=== PATIENT | female | born 1985 | race African-American/Black ===

== ENCOUNTER 2016-10-11 09:26 | Emergency (ER) | payer OTHER ==
[2016-10-11 10:13] LABS: MEAN CORPUSCULAR HEMOGLOBIN 31.2 pg (27.0-33.0); MEAN CORPUSCULAR HGB CONC 31.7 g/dl (32.0-36.5); MEAN CORPUSCULAR VOLUME 98.5 fl (80.0-96.0); RED CELL DISTRIBUTION WIDTH 13.9 % (11.5-14.5); WHITE BLOOD COUNT 8.3 K/mm3 (4.0-10.0)
[2016-10-11 10:29] LABS: CONTROL LINE HCG INT CTR LINE PRESENT
--- NOTE | 2016-10-11 10:48 | EDDOCDS ---
Physician Documentation [facility] Name: Claudia Barnes Age: 31 yrs Sex: Female : 1985 Arrival Date: 10/11/2016 Time: 09:26 Bed I7 / 29 Private [place] [facility] [place]: 10/11/16 10:38 Discharged to Home/Self Care. Impression: Abnormal uterine and vaginal bleeding, unspecified, Urinary tract infection, site not specified. - Condition is Stable. - Discharge Instructions: Abnormal Uterine Bleeding, Uterine Bleeding, Dysfunctional, Abnormal Uterine Bleeding, [id number], Urinary Tract Infection. - Prescriptions for Cipro 500 mg Oral Tablet - take 1 tablet by ORAL route every 12 hours; 14 tablet. - Medication Reconciliation, Local Pharmacy Hours form. - [place] [facility] [place]; When: 2 - 3 days. - Problem is new. - Symptoms are unchanged. - Notes: return for severe abdominal pain, vaginal bleeding saturading more than one pad per hour, worsening symptoms or other concerns Historical: - Allergies: no known allergies; - Home Meds: 1. none - PMHx: none; - PSHx: Section x3; - Social history: Smoking status: Patient uses tobacco products, light tobacco smoker. No barriers to communication noted, The patient speaks fluent Setswana, Speaks appropriately for age. - Family history: Not pertinent. - : The pt / caregiver states he / she is not on anticoagulants. Home medication list is obtained from the patient. - Exposure Risk Screening:: None identified. Vital Signs: 10/11 09:28 BP 117 / 73; Pulse 82; Resp 18; Temp 98.9(O); Pulse Ox 100% ; Weight 57.61 kg / 127.01 jrd lbs (R); Height 5 ft. 2 in. (157.48 cm) (R); Pain 8/10; 10:46 BP 115 / 76; Pulse 80; Resp 18; Temp 97.4; Pulse Ox 98% on R/A; Pain 2/10; dls 09:28 Body Mass Index 23.23 (57.61 kg, 157.48 cm) jrd MDM: 09:36 Urine Culture Ordered. EDMS 09:36 CBC Ordered. EDMS 09:37 HCG,Serum Qualitative Ordered. EDMS 09:37 Type & Screen Ordered. EDMS 09:37 UA Ordered. EDMS 09:44 Set up pelvic ordered. sd1 09:46 GC & Chlamydia Amplification Ordered. EDMS 09:46 Wet Prep Ordered. EDMS 10:33 CBC Reviewed. sd1 10:33 UA Reviewed. sd1 10:33 HCG,Serum Qualitative Reviewed. sd1 10:33 Wet Prep Reviewed. sd1 10:33 Financial registration complete. lg 10:44 [facility] Payment Agreement was scanned into [employer] and attached to record. lg Signatures: Dispatcher [employer] EDMS Caroline Perry MD MD sd1 René Alexis,RN RN Antionette Weiss RN RN dls Cornelius Hogan, Reg Reg lg Es Braga RN RN hs1 The chart was reviewed and I authenticate all verbal orders and agree with the evaluation and treatment provided.Attachments: 10:44 [facility] Payment Agreement lg MTDD
--- NOTE | 2016-10-11 10:48 | EDDOCDS ---
Nurse's Notes [facility] Name: Claudia Barnes Age: 31 yrs Sex: Female : 1985 Arrival Date: 10/11/2016 Time: 09:26 Bed I7 / 29 Private MD: KAROLYN Frias Diagnosis: Abnormal uterine and vaginal bleeding, unspecified;Urinary tract infection, site not specified Presentation: 10/11 09:30 Presenting complaint: Patient states: patient unsure if she is however she is hs1 bleeding through a tampon - Patient reports spotting through a super tampon in less than 4 hours. Unsure if regular menses or not as patient has never bled through a tampon before. Patient also concerned for UTI symptoms. Risk factors: The patient reports no loss of conciousness prior to arrival. This patient has not had a hysterectomy. This patient has not begun menopause. Adult Sepsis Screening: The patient does not have new or worsening altered mentation. Patient's respiratory rate is less than 22. Systolic blood pressure is greater than 100. Patient has a qSOFA score of 0- Negative Sepsis Screen. Suicide/Homicide risk assessment- the patient denies having any suicidal and/or homicidal ideations and does not present with any other emotional, behavioral or mental health complaints. Status: The patient is a dependent. Transition of care: patient was not received from another setting of care. 09:30 Acuity: ASHLEY Level 3 hs1 09:30 Method Of Arrival: Walkin/Carried/Asstd hs1 Triage Assessment: 09:34 General: Appears in no apparent distress, comfortable, Behavior is appropriate for age, hs1 cooperative, pleasant. Pain: Location: abdomen Pain currently is 5 out of 10 on a pain scale. HIV screening NA for this visit Offered previously. Respiratory: No deficits noted. : Reports vaginal bleeding that is bright red heavy flow. Derm: No deficits noted. Historical: - Allergies: no known allergies; - Home Meds: 1. none - PMHx: none; - PSHx: Section x3; - Social history: Smoking status: Patient uses tobacco products, light tobacco smoker. No barriers to communication noted, The patient speaks fluent Wolof, Speaks appropriately for age. - Family history: Not pertinent. - : The pt / caregiver states he / she is not on anticoagulants. Home medication list is obtained from the patient. - Exposure Risk Screening:: None identified. Screenin:02 Screening information is obtained from the patient. Fall risk: No risks identified. jmk Assistance ADL's: requires no assistance with activities of daily living. Abuse/DV Screen: The patient / caregiver reports he/she is: not in a situation that causes fear, pain or injury. Nutritional screening: No deficits noted. Advance Directives: Currently, there is no health care proxy. There is no active DNR order. There is no living will. There is no Power of Retirement Specialist. Advance directive information has not previously been placed in an [facility] medical record. home support is adequate. Assessment: 10:02 General: Appears in no apparent distress. Cardiovascular: No deficits noted. Capillary jmk refill < 3 seconds. Respiratory: No deficits noted. GI: Abdomen is flat, non- distended Bowel sounds present X 4 quads. Abd is soft and non tender X 4 quads. :. Vital Signs: 09:28 BP 117 / 73; Pulse 82; Resp 18; Temp 98.9(O); Pulse Ox 100% ; Weight 57.61 kg (R); jrd Height 5 ft. 2 in. (157.48 cm) (R); Pain 8/10; 10:46 BP 115 / 76; Pulse 80; Resp 18; Temp 97.4; Pulse Ox 98% on R/A; Pain 2/10; dls 09:28 Body Mass Index 23.23 (57.61 kg, 157.48 cm) [facility] Vitals: 09:28 Log In Time: October 11, 2016 at 09:25. [facility] ED Course: 09:28 Patient visited by Young Godinez PCA. jrd 09:28 [facility] [place] Private Physician. jrd 09:28 Patient moved to Waiting jrd 09:31 Patient visited by Young Godinez PCA. jrd 09:31 Patient moved to Pre RCE jrd 09:33 Triage Initiated hs1 09:36 Patient moved to I7 hs1 09:37 Caroline Perry MD is Attending Physician. sd1 09:37 Patient visited by Caroline Perry MD. sd1 09:56 Urine Culture Sent. beulahk 09:56 UA Sent. jmk 09:56 Type & Screen Sent. beulahk 09:56 HCG,Serum Qualitative Sent. jmk 09:56 CBC Sent. beulahk 10:02 The patient / caregiver is instructed regarding the plan of care and ED course. beulahk 10:02 GC & Chlamydia Amplification Sent. beulahk 10:02 Wet Prep Sent. beulahk 10:03 Assist provider with pelvic exam: Specimens sent to lab. Performed by Caroline Perry MD Patient tolerated well. 10:04 Patient visited by René Alexis RN. ed 10:38 [facility] [place]erral Physician. sd1 10:44 [facility] Payment Agreement was scanned into [employer] and attached to record. lg 10:48 No IV's were initiated during this patient's visit. dls Order Results: Lab Order: CBC; SPEC'M 10/11/16 09:41 Test: WHITE BLOOD COUNT; Value: 8.3; Range: 4.0-10.0; Units: K/mm3; Status: F Test: RED BLOOD COUNT; Value: 4.14; Range: 4.00-5.40; Units: M/mm3; Status: F Test: HEMOGLOBIN; Value: 12.9; Range: 12.0-16.0; Units: g/dl; Status: F Test: HEMATOCRIT; Value: 40.8; Range: 36.0-47.0; Units: %; Status: F Test: MEAN CORPUSCULAR VOLUME; Value: 98.5; Range: 80.0-96.0; Abnormal: Above high normal; Units: fl; Status: F Test: MEAN CORPUSCULAR HEMOGLOBIN; Value: 31.2; Range: 27.0-33.0; Units: pg; Status: F Test: MEAN CORPUSCULAR HGB CONC; Value: 31.7; Range: 32.0-36.5; Abnormal: Below low normal; Units: g/dl; Status: F Test: RED CELL DISTRIBUTION WIDTH; Value: 13.9; Range: 11.5-14.5; Units: %; Status: F Test: PLATELET COUNT, AUTOMATED; Value: 296; Range: 150-450; Units: k/mm3; Status: F Lab Order: HCG,Serum Qualitative; SPEC'M 10/11/16 09:41 Test: HCG, SERUM QUALITATIVE; Value: NEGATIVE; Range: NEGATIVE; Status: F Lab Order: UA; SPEC'M 10/11/16 09:41 Test: APPEARANCE, URINE; Value: CLOUDY; Range: CLEAR; Abnormal: Above high normal; Status: F Test: COLOR, URINE; Value: YELLOW; Range: YELLOW; Status: F Test: PH,URINE; Value: 5.0; Range: 5.0-9.0; Units: UNITS; Status: F Test: SPECIFIC GRAVITY URINE AUTO; Value: 1.021; Range: 1.002-1.035; Status: F Test: PROTEIN, URINE AUTO; Value: 2+; Range: NEGATIVE; Abnormal: Above high normal; Units: mg/dL; Status: F Test: GLUCOSE, URINE (UA) AUTO; Value: NEGATIVE; Range: NEGATIVE; Units: mg/dL; Status: F Test: KETONE, URINE AUTO; Value: NEGATIVE; Range: NEGATIVE; Units: mg/dL; Status: F Test: UROBILINOGEN, URINE AUTO; Value: 2.0; Range: 0.0-2.0; Abnormal: Above high normal; Units: mg/dL; Status: F Test: BILIRUBIN, URINE AUTO; Value: NEGATIVE; Range: NEGATIVE; Status: F Test: NITRITE, URINE AUTO; Value: NEGATIVE; Range: NEGATIVE; Status: F Test: LEUKOCYTE ESTERASE, URINE AUTO; Value: 3+; Range: NEGATIVE; Abnormal: Above high normal; Status: F Test: BLOOD, URINE BLOOD; Value: 3+; Range: NEGATIVE; Abnormal: Above high normal; Status: F Test: WBC, URINE AUTO; Value: TNTC; Range: 0-3; Abnormal: Above high normal; Units: /HPF; Status: F Test: RBC, URINE AUTO; Value: TNTC; Range: 0-3; Abnormal: Above high normal; Units: /HPF; Status: F Test: BACTERIA, URINE AUTO; Value: 3+; Range: NEGATIVE; Abnormal: Above high normal; Status: F Test: SQUAMOUS EPITHELIAL CELL UR AU; Value: 4; Range: 0-6; Units: /HPF; Status: F Test: MUCUS, URINE; Value: LARGE; Range: NEGATIVE; Status: F Test: HYALINE CAST, URINE AUTO; Value: 0; Range: 0-1; Units: /LPF; Status: F Test: AMORPHOUS SEDIMENT; Value: SMALL; Range: NEGATIVE; Abnormal: Above high normal; Status: F Lab Order: Wet Prep; SPEC'M 10/11/16 09:53 Test: WET PREP; Value: WET PREP RESULT; Status: F Test: WET PREP; Value: MANY EPITHELIAL CELLS PRESENT; Status: F Test: WET PREP; Value: MANY RBC; Status: F Outcome: 10:38 Discharge ordered by Provider. sd1 10:47 Discharge Assessment: Patient awake, alert and oriented x 3. No cognitive and/or dls functional deficits noted. Patient verbalized understanding of disposition instructions. patient administered narcotics - no. The following High Risk Discharge criteria are identified: None. Discharged to home ambulatory, with family. Condition: stable. Discharge instructions given to patient, Instructed on discharge instructions, follow up and referral plans. medication usage, Demonstrated understanding of instructions, medications, Pt was receptive of discharge instructions/ teaching. Prescriptions given X 2. No special radiology studies were completed. Property sent home with patient. 10:48 Patient left the ED. dls Signatures: Caroline Perry MD MD sd1 René Alexis,RN RN Antionette Weiss RN RN Cornelius Louise, Tony Reg lg Es Braga RN RN hs1 Young Godinez, DOMINIC HELP DESK TECHNICIAN jrd MTDD
--- NOTE | 2016-10-13 11:48 | EDDOCDS ---
Physician Documentation [facility] Name: Claudia Barnes Age: 31 yrs Sex: Female : 1985 Arrival Date: 10/11/2016 Time: 09:26 Bed I7 / 29 Private MD: [place] [facility] [place]position: 10/11/16 10:38 Discharged to Home/Self Care. Impression: Abnormal uterine and vaginal bleeding, unspecified, Urinary tract infection, site not specified. - Condition is Stable. - Discharge Instructions: Abnormal Uterine Bleeding, Uterine Bleeding, Dysfunctional, Abnormal Uterine Bleeding, [id number], Urinary Tract Infection. - Prescriptions for Cipro 500 mg Oral Tablet - take 1 tablet by ORAL route every 12 hours; 14 tablet. - Medication Reconciliation, Local Pharmacy Hours form. - [place] [facility] [place]; When: 2 - 3 days. - Problem is new. - Symptoms are unchanged. - Notes: return for severe abdominal pain, vaginal bleeding saturading more than one pad per hour, worsening symptoms or other concerns Historical: - Allergies: no known allergies; - Home Meds: 1. none - PMHx: none; - PSHx: Section x3; - Social history: Smoking status: Patient uses tobacco products, light tobacco smoker. No barriers to communication noted, The patient speaks fluent Divehi, Speaks appropriately for age. - Family history: Not pertinent. - : The pt / caregiver states he / she is not on anticoagulants. Home medication list is obtained from the patient. - Exposure Risk Screening:: None identified. Vital Signs: 10/11 09:28 BP 117 / 73; Pulse 82; Resp 18; Temp 98.9(O); Pulse Ox 100% ; Weight 57.61 kg / 127.01 jrd lbs (R); Height 5 ft. 2 in. (157.48 cm) (R); Pain 8/10; 10:46 BP 115 / 76; Pulse 80; Resp 18; Temp 97.4; Pulse Ox 98% on R/A; Pain 2/10; dls 09:28 Body Mass Index 23.23 (57.61 kg, 157.48 cm) jrd MDM: 09:36 Urine Culture Ordered. EDMS 09:36 CBC Ordered. EDMS 09:37 HCG,Serum Qualitative Ordered. EDMS 09:37 Type & Screen Ordered. EDMS 09:37 UA Ordered. EDMS 09:44 Set up pelvic ordered. sd1 09:46 GC & Chlamydia Amplification Ordered. EDMS 09:46 Wet Prep Ordered. EDMS 10:33 CBC Reviewed. sd1 10:33 UA Reviewed. sd1 10:33 HCG,Serum Qualitative Reviewed. sd1 10:33 Wet Prep Reviewed. sd1 10:33 Financial registration complete. lg 10:44 [facility] Payment Agreement was scanned into [employer] and attached to record. lg 14:21 T-Sheet-- Draft Copy was scanned into [employer] and attached to record. gb Signatures: Dispatcher [employer] EDCaroline Small MD MD sd1 René Alexis,RN RN Antionette Weiss RN RN Nayely Ortega, Reg Reg gb Cornelius Hogan, Reg Reg lg Es Braga, RN RN hs1 The chart was reviewed and I authenticate all verbal orders and agree with the evaluation and treatment provided.Attachments: 10:44 [facility] Payment Agreement lg 14:21 T-Sheet-- Draft Copy gb Chart Complete MTDD
--- NOTE | 2016-10-13 11:48 | EDDOCDS ---
Nurse's Notes [facility] Name: Claudia Barnes Age: 31 yrs Sex: Female : 1985 Arrival Date: 10/11/2016 Time: 09:26 Bed I7 / 29 Private MD: KAROLYN Frias Diagnosis: Abnormal uterine and vaginal bleeding, unspecified;Urinary tract infection, site not specified Presentation: 10/11 09:30 Presenting complaint: Patient states: patient unsure if she is however she is hs1 bleeding through a tampon - Patient reports spotting through a super tampon in less than 4 hours. Unsure if regular menses or not as patient has never bled through a tampon before. Patient also concerned for UTI symptoms. Risk factors: The patient reports no loss of conciousness prior to arrival. This patient has not had a hysterectomy. This patient has not begun menopause. Adult Sepsis Screening: The patient does not have new or worsening altered mentation. Patient's respiratory rate is less than 22. Systolic blood pressure is greater than 100. Patient has a qSOFA score of 0- Negative Sepsis Screen. Suicide/Homicide risk assessment- the patient denies having any suicidal and/or homicidal ideations and does not present with any other emotional, behavioral or mental health complaints. Status: The patient is a dependent. Transition of care: patient was not received from another setting of care. 09:30 Acuity: ASHLEY Level 3 hs1 09:30 Method Of Arrival: Walkin/Carried/Asstd hs1 Triage Assessment: 09:34 General: Appears in no apparent distress, comfortable, Behavior is appropriate for age, hs1 cooperative, pleasant. Pain: Location: abdomen Pain currently is 5 out of 10 on a pain scale. HIV screening NA for this visit Offered previously. Respiratory: No deficits noted. : Reports vaginal bleeding that is bright red heavy flow. Derm: No deficits noted. Historical: - Allergies: no known allergies; - Home Meds: 1. none - PMHx: none; - PSHx: Section x3; - Social history: Smoking status: Patient uses tobacco products, light tobacco smoker. No barriers to communication noted, The patient speaks fluent Syriac, Speaks appropriately for age. - Family history: Not pertinent. - : The pt / caregiver states he / she is not on anticoagulants. Home medication list is obtained from the patient. - Exposure Risk Screening:: None identified. Screenin:02 Screening information is obtained from the patient. Fall risk: No risks identified. jmk Assistance ADL's: requires no assistance with activities of daily living. Abuse/DV Screen: The patient / caregiver reports he/she is: not in a situation that causes fear, pain or injury. Nutritional screening: No deficits noted. Advance Directives: Currently, there is no health care proxy. There is no active DNR order. There is no living will. There is no Power of Director Of Midwifery/Staff Midwife. Advance directive information has not previously been placed in an [facility] medical record. home support is adequate. Assessment: 10:02 General: Appears in no apparent distress. Cardiovascular: No deficits noted. Capillary jmk refill < 3 seconds. Respiratory: No deficits noted. GI: Abdomen is flat, non- distended Bowel sounds present X 4 quads. Abd is soft and non tender X 4 quads. :. Vital Signs: 09:28 BP 117 / 73; Pulse 82; Resp 18; Temp 98.9(O); Pulse Ox 100% ; Weight 57.61 kg (R); jrd Height 5 ft. 2 in. (157.48 cm) (R); Pain 8/10; 10:46 BP 115 / 76; Pulse 80; Resp 18; Temp 97.4; Pulse Ox 98% on R/A; Pain 2/10; dls 09:28 Body Mass Index 23.23 (57.61 kg, 157.48 cm) [facility] Vitals: 09:28 Log In Time: October 11, 2016 at 09:25. [facility] ED Course: 09:28 Patient visited by Young Godinez PCA. jrd 09:28 Altagracia [facility] is Private Physician. jrd 09:28 Patient moved to Waiting jrd 09:31 Patient visited by Young Godinez PCA. jrd 09:31 Patient moved to Pre RCE jrd 09:33 Triage Initiated hs1 09:36 Patient moved to I7 hs1 09:37 Caroline Perry MD is Attending Physician. sd1 09:37 Patient visited by Caroline Perry MD. sd1 09:56 Urine Culture Sent. beulahk 09:56 UA Sent. beulahk 09:56 Type & Screen Sent. beulahk 09:56 HCG,Serum Qualitative Sent. jmk 09:56 CBC Sent. jmk 10:02 The patient / caregiver is instructed regarding the plan of care and ED course. beulahk 10:02 GC & Chlamydia Amplification Sent. beulahk 10:02 Wet Prep Sent. beulahk 10:03 Assist provider with pelvic exam: Specimens sent to lab. Performed by Caroline Perry MD Patient tolerated well. 10:04 Patient visited by René Alexis RN. ed 10:38 Altagracia [facility] is Referral Physician. sd1 10:44 [facility] [place] Agreement was scanned into [employer] and attached to record. lg 10:48 No IV's were initiated during this patient's visit. dls 14:21 T-Sheet-- Draft Copy was scanned into [employer] and attached to record. gb Order Results: Lab Order: CBC; SPEC'M 10/11/16 09:41 Test: WHITE BLOOD COUNT; Value: 8.3; Range: 4.0-10.0; Units: K/mm3; Status: F Test: RED BLOOD COUNT; Value: 4.14; Range: 4.00-5.40; Units: M/mm3; Status: F Test: HEMOGLOBIN; Value: 12.9; Range: 12.0-16.0; Units: g/dl; Status: F Test: HEMATOCRIT; Value: 40.8; Range: 36.0-47.0; Units: %; Status: F Test: MEAN CORPUSCULAR VOLUME; Value: 98.5; Range: 80.0-96.0; Abnormal: Above high normal; Units: fl; Status: F Test: MEAN CORPUSCULAR HEMOGLOBIN; Value: 31.2; Range: 27.0-33.0; Units: pg; Status: F Test: MEAN CORPUSCULAR HGB CONC; Value: 31.7; Range: 32.0-36.5; Abnormal: Below low normal; Units: g/dl; Status: F Test: RED CELL DISTRIBUTION WIDTH; Value: 13.9; Range: 11.5-14.5; Units: %; Status: F Test: PLATELET COUNT, AUTOMATED; Value: 296; Range: 150-450; Units: k/mm3; Status: F Lab Order: HCG,Serum Qualitative; SPEC'M 10/11/16:41 Test: HCG, SERUM QUALITATIVE; Value: NEGATIVE; Range: NEGATIVE; Status: F Lab Order: Type & Screen; SPECM 10/11/16 Test: BLOOD TYPE; Value: O POS; Status: F Test: AB SCREEN (INDIRECT KSIP)GEL; Value: NEGATIVE; Status: F Lab Order: UA; SPEC'M 10/11/16: Test: APPEARANCE, URINE; Value: CLOUDY; Range: CLEAR; Abnormal: Above high normal; Status: F Test: COLOR, URINE; Value: YELLOW; Range: YELLOW; Status: F Test: PH,URINE; Value: 5.0; Range: 5.0-9.0; Units: UNITS; Status: F Test: SPECIFIC GRAVITY URINE AUTO; Value: 1.021; Range: 1.002-1.035; Status: F Test: PROTEIN, URINE AUTO; Value: 2+; Range: NEGATIVE; Abnormal: Above high normal; Units: mg/dL; Status: F Test: GLUCOSE, URINE (UA) AUTO; Value: NEGATIVE; Range: NEGATIVE; Units: mg/dL; Status: F Test: KETONE, URINE AUTO; Value: NEGATIVE; Range: NEGATIVE; Units: mg/dL; Status: F Test: UROBILINOGEN, URINE AUTO; Value: 2.0; Range: 0.0-2.0; Abnormal: Above high normal; Units: mg/dL; Status: F Test: BILIRUBIN, URINE AUTO; Value: NEGATIVE; Range: NEGATIVE; Status: F Test: NITRITE, URINE AUTO; Value: NEGATIVE; Range: NEGATIVE; Status: F Test: LEUKOCYTE ESTERASE, URINE AUTO; Value: 3+; Range: NEGATIVE; Abnormal: Above high normal; Status: F Test: BLOOD, URINE BLOOD; Value: 3+; Range: NEGATIVE; Abnormal: Above high normal; Status: F Test: WBC, URINE AUTO; Value: TNTC; Range: 0-3; Abnormal: Above high normal; Units: /HPF; Status: F Test: RBC, URINE AUTO; Value: TNTC; Range: 0-3; Abnormal: Above high normal; Units: /HPF; Status: F Test: BACTERIA, URINE AUTO; Value: 3+; Range: NEGATIVE; Abnormal: Above high normal; Status: F Test: SQUAMOUS EPITHELIAL CELL UR AU; Value: 4; Range: 0-6; Units: /HPF; Status: F Test: MUCUS, URINE; Value: LARGE; Range: NEGATIVE; Status: F Test: HYALINE CAST, URINE AUTO; Value: 0; Range: 0-1; Units: /LPF; Status: F Test: AMORPHOUS SEDIMENT; Value: SMALL; Range: NEGATIVE; Abnormal: Above high normal; Status: F Lab Order: Urine Culture; SPEC'M 10/11/16 09:41 Test: URINE CULTURE; Value: <EXTERNAL COMMENT eCWMed> FULL REPORT IN LAB NOTES (eCW and Medent).; Status: F Test: URINE CULTURE; Value: ORGANISM 1: ESCHERICHIA COLI; Status: F Test: URINE CULTURE; Value: ESCHERICHIA COLI; Status: F Test: URINE CULTURE; Value: COLONY COUNT CFU/ml >100,000; Status: F Test: URINE CULTURE; Value: GRAM NEG SENSI - VITEK 80; Status: F Test: URINE CULTURE; Value: Method: VIT2; Status: F Test: URINE CULTURE; Value: EXTD BRD SPCTRM BETA LACTAMASE -; Status: F Test: URINE CULTURE; Value: TRIMETHOPRIM/SULFAMETHOXAZOLE >=320 R; Status: F Test: URINE CULTURE; Value: AMPICILLIN >=32 R; Status: F Test: URINE CULTURE; Value: GENTAMICIN <=1 S; Status: F Test: URINE CULTURE; Value: NITROFURANTOIN <=16 S; Status: F Test: URINE CULTURE; Value: CEFAZOLIN <=4 S; Status: F Test: URINE CULTURE; Value: LEVOFLOXACIN <=0.12 S; Status: F Test: URINE CULTURE; Value: TOBRAMYCIN <=1 S; Status: F Test: URINE CULTURE; Value: CEFTRIAXONE <=1 S; Status: F Test: URINE CULTURE; Value: CEFTAZIDIME <=1 S; Status: F Test: URINE CULTURE; Value: AMPICILLIN/SULBACTAM 16 I; Status: F Test: URINE CULTURE; Value: PIPERACILLIN/TAZOBACTAM <=4 S; Status: F Test: URINE CULTURE; Value: AZTREONAM <=1 S; Status: F Test: URINE CULTURE; Value: ERTAPENEM <=0.5 S; Status: F Test: URINE CULTURE; Value: MEROPENEM <=0.25 S; Status: F Test: URINE CULTURE; Value: TIGECYCLINE <=0.5 S; Status: F Test: URINE CULTURE; Value: CEFEPIME <=1 S; Status: F Lab Order: GC & Chlamydia Amplification; SPEC'M 10/11/16 09:53 Test: CHLAMYDIA DNA AMPLIFICATION; Value: NEGATIVE; Range: NEGATIVE; Status: F Test: GC DNA AMPLIFICATION; Value: NEGATIVE; Range: NEGATIVE; Status: F Lab Order: Wet Prep; SPEC'M 10/11/16 09:53 Test: WET PREP; Value: WET PREP RESULT; Status: F Test: WET PREP; Value: MANY EPITHELIAL CELLS PRESENT; Status: F Test: WET PREP; Value: MANY RBC; Status: F Outcome: 10:38 Discharge ordered by Provider. sd1 10:47 Discharge Assessment: Patient awake, alert and oriented x 3. No cognitive and/or dls functional deficits noted. Patient verbalized understanding of disposition instructions. patient administered narcotics - no. The following High Risk Discharge criteria are identified: None. Discharged to home ambulatory, with family. Condition: stable. Discharge instructions given to patient, Instructed on discharge instructions, follow up and referral plans. medication usage, Demonstrated understanding of instructions, medications, Pt was receptive of discharge instructions/ teaching. Prescriptions given X 2. No special radiology studies were completed. Property sent home with patient. 10:48 Patient left the ED. dls Signatures: Caroline Perry MD MD sd1 René Alexis,RN RN Antionette Weiss RN RN dls Nayely Matute, Reg Reg gb Cornelius Hogan, Reg Reg lg Es Braga RN RN hs1 Young Godinez, DOMINIC INFANT CAREGIVER jrd Chart Complete MTDD
--- NOTE | 2016-10-13 11:48 | EDDOCDS ---
Physician Documentation [facility] Name: Claudia Barnes Age: 31 yrs Sex: Female : 1985 Arrival Date: 10/11/2016 Time: 09:26 Bed I7 / 29 Private MD: Altagracia [facility] Disposition: 10/11/16 10:38 Discharged to Home/Self Care. Impression: Abnormal uterine and vaginal bleeding, unspecified, Urinary tract infection, site not specified. - Condition is Stable. - Discharge Instructions: Abnormal Uterine Bleeding, Uterine Bleeding, Dysfunctional, Abnormal Uterine Bleeding, [id number], Urinary Tract Infection. - Prescriptions for Cipro 500 mg Oral Tablet - take 1 tablet by ORAL route every 12 hours; 14 tablet. - Medication Reconciliation, Local Pharmacy Hours form. - Follow up: [facility] Altagracia; When: 2 - 3 days. - Problem is new. - Symptoms are unchanged. - Notes: return for severe abdominal pain, vaginal bleeding saturading more than one pad per hour, worsening symptoms or other concerns Historical: - Allergies: no known allergies; - Home Meds: 1. none - PMHx: none; - PSHx: Section x3; - Social history: Smoking status: Patient uses tobacco products, light tobacco smoker. No barriers to communication noted, The patient speaks fluent Khmer, Speaks appropriately for age. - Family history: Not pertinent. - : The pt / caregiver states he / she is not on anticoagulants. Home medication list is obtained from the patient. - Exposure Risk Screening:: None identified. Vital Signs: 10/11 09:28 BP 117 / 73; Pulse 82; Resp 18; Temp 98.9(O); Pulse Ox 100% ; Weight 57.61 kg / 127.01 jrd lbs (R); Height 5 ft. 2 in. (157.48 cm) (R); Pain 8/10; 10:46 BP 115 / 76; Pulse 80; Resp 18; Temp 97.4; Pulse Ox 98% on R/A; Pain 2/10; dls 09:28 Body Mass Index 23.23 (57.61 kg, 157.48 cm) jrd MDM: 09:36 Urine Culture Ordered. EDMS 09:36 CBC Ordered. EDMS 09:37 HCG,Serum Qualitative Ordered. EDMS 09:37 Type & Screen Ordered. EDMS 09:37 UA Ordered. EDMS 09:44 Set up pelvic ordered. sd1 09:46 GC & Chlamydia Amplification Ordered. EDMS 09:46 Wet Prep Ordered. EDMS 10:33 CBC Reviewed. sd1 10:33 UA Reviewed. sd1 10:33 HCG,Serum Qualitative Reviewed. sd1 10:33 Wet Prep Reviewed. sd1 10:33 Financial registration complete. lg 10:44 [facility] Payment Agreement was scanned into [employer] and attached to record. lg 14:21 T-Sheet-- Draft Copy was scanned into [employer] and attached to record. gb Signatures: Dispatcher [employer] EDCaroline Small MD MD sd1 René Alexis,RN RN Antionette Weiss RN RN Nayely Ortega, Reg Reg gb Cornelius Hogan, Reg Reg lg Es Braga, RN RN hs1 The chart was reviewed and I authenticate all verbal orders and agree with the evaluation and treatment provided.Attachments: 10:44 [facility] Payment Agreement lg 14:21 T-Sheet-- Draft Copy gb Chart Complete MTDD
--- NOTE | 2016-10-13 12:36 | EDDOCDS ---
Nurse's Notes [facility] Name: Claudia Barnes Age: 31 yrs Sex: Female : 1985 Arrival Date: 10/11/2016 Time: 09:26 Bed I7 / 29 Private MD: KAROLYN Frias Diagnosis: Abnormal uterine and vaginal bleeding, unspecified;Urinary tract infection, site not specified Presentation: 10/11 09:30 Presenting complaint: Patient states: patient unsure if she is however she is hs1 bleeding through a tampon - Patient reports spotting through a super tampon in less than 4 hours. Unsure if regular menses or not as patient has never bled through a tampon before. Patient also concerned for UTI symptoms. Risk factors: The patient reports no loss of conciousness prior to arrival. This patient has not had a hysterectomy. This patient has not begun menopause. Adult Sepsis Screening: The patient does not have new or worsening altered mentation. Patient's respiratory rate is less than 22. Systolic blood pressure is greater than 100. Patient has a qSOFA score of 0- Negative Sepsis Screen. Suicide/Homicide risk assessment- the patient denies having any suicidal and/or homicidal ideations and does not present with any other emotional, behavioral or mental health complaints. Status: The patient is a dependent. Transition of care: patient was not received from another setting of care. 09:30 Acuity: ASHLEY Level 3 hs1 09:30 Method Of Arrival: Walkin/Carried/Asstd hs1 Triage Assessment: 09:34 General: Appears in no apparent distress, comfortable, Behavior is appropriate for age, hs1 cooperative, pleasant. Pain: Location: abdomen Pain currently is 5 out of 10 on a pain scale. HIV screening NA for this visit Offered previously. Respiratory: No deficits noted. : Reports vaginal bleeding that is bright red heavy flow. Derm: No deficits noted. Historical: - Allergies: no known allergies; - Home Meds: 1. none - PMHx: none; - PSHx: Section x3; - Social history: Smoking status: Patient uses tobacco products, light tobacco smoker. No barriers to communication noted, The patient speaks fluent Korean, Speaks appropriately for age. - Family history: Not pertinent. - : The pt / caregiver states he / she is not on anticoagulants. Home medication list is obtained from the patient. - Exposure Risk Screening:: None identified. Screenin:02 Screening information is obtained from the patient. Fall risk: No risks identified. jmk Assistance ADL's: requires no assistance with activities of daily living. Abuse/DV Screen: The patient / caregiver reports he/she is: not in a situation that causes fear, pain or injury. Nutritional screening: No deficits noted. Advance Directives: Currently, there is no health care proxy. There is no active DNR order. There is no living will. There is no Power of Client Onboarding Analyst. Advance directive information has not previously been placed in an [facility] medical record. home support is adequate. Assessment: 10:02 General: Appears in no apparent distress. Cardiovascular: No deficits noted. Capillary jmk refill < 3 seconds. Respiratory: No deficits noted. GI: Abdomen is flat, non- distended Bowel sounds present X 4 quads. Abd is soft and non tender X 4 quads. :. Vital Signs: 09:28 BP 117 / 73; Pulse 82; Resp 18; Temp 98.9(O); Pulse Ox 100% ; Weight 57.61 kg (R); jrd Height 5 ft. 2 in. (157.48 cm) (R); Pain 8/10; 10:46 BP 115 / 76; Pulse 80; Resp 18; Temp 97.4; Pulse Ox 98% on R/A; Pain 2/10; dls 09:28 Body Mass Index 23.23 (57.61 kg, 157.48 cm) [facility] Vitals: 09:28 Log In Time: October 11, 2016 at 09:25. [facility] ED Course: 09:28 Patient visited by Young Godinez PCA. jrd 09:28 Altagracia [facility] is Private Physician. jrd 09:28 Patient moved to Waiting jrd 09:31 Patient visited by Young Godinez PCA. jrd 09:31 Patient moved to Pre RCE jrd 09:33 Triage Initiated hs1 09:36 Patient moved to I7 hs1 09:37 Caroline Perry MD is Attending Physician. sd1 09:37 Patient visited by Caroline Perry MD. sd1 09:56 Urine Culture Sent. beulahk 09:56 UA Sent. beulahk 09:56 Type & Screen Sent. beulahk 09:56 HCG,Serum Qualitative Sent. jmk 09:56 CBC Sent. jmk 10:02 The patient / caregiver is instructed regarding the plan of care and ED course. beulahk 10:02 GC & Chlamydia Amplification Sent. beulahk 10:02 Wet Prep Sent. beulahk 10:03 Assist provider with pelvic exam: Specimens sent to lab. Performed by Caroline Perry MD Patient tolerated well. 10:04 Patient visited by René Alexis RN. ed 10:38 Altagracia [facility] is Referral Physician. sd1 10:44 [facility] Payment Agreement was scanned into [employer] and attached to record. lg 10:48 No IV's were initiated during this patient's visit. dls 14:21 T-Sheet-- Draft Copy was scanned into [employer] and attached to record. gb Order Results: Lab Order: CBC; SPEC'M 10/11/16 09:41 Test: WHITE BLOOD COUNT; Value: 8.3; Range: 4.0-10.0; Units: K/mm3; Status: F Test: RED BLOOD COUNT; Value: 4.14; Range: 4.00-5.40; Units: M/mm3; Status: F Test: HEMOGLOBIN; Value: 12.9; Range: 12.0-16.0; Units: g/dl; Status: F Test: HEMATOCRIT; Value: 40.8; Range: 36.0-47.0; Units: %; Status: F Test: MEAN CORPUSCULAR VOLUME; Value: 98.5; Range: 80.0-96.0; Abnormal: Above high normal; Units: fl; Status: F Test: MEAN CORPUSCULAR HEMOGLOBIN; Value: 31.2; Range: 27.0-33.0; Units: pg; Status: F Test: MEAN CORPUSCULAR HGB CONC; Value: 31.7; Range: 32.0-36.5; Abnormal: Below low normal; Units: g/dl; Status: F Test: RED CELL DISTRIBUTION WIDTH; Value: 13.9; Range: 11.5-14.5; Units: %; Status: F Test: PLATELET COUNT, AUTOMATED; Value: 296; Range: 150-450; Units: k/mm3; Status: F Lab Order: HCG,Serum Qualitative; SPEC'M 10/11/16:41 Test: HCG, SERUM QUALITATIVE; Value: NEGATIVE; Range: NEGATIVE; Status: F Lab Order: Type & Screen; SPECM 10/11/16 Test: BLOOD TYPE; Value: O POS; Status: F Test: AB SCREEN (INDIRECT SKIP)GEL; Value: NEGATIVE; Status: F Lab Order: UA; SPEC'M 10/11/16: Test: APPEARANCE, URINE; Value: CLOUDY; Range: CLEAR; Abnormal: Above high normal; Status: F Test: COLOR, URINE; Value: YELLOW; Range: YELLOW; Status: F Test: PH,URINE; Value: 5.0; Range: 5.0-9.0; Units: UNITS; Status: F Test: SPECIFIC GRAVITY URINE AUTO; Value: 1.021; Range: 1.002-1.035; Status: F Test: PROTEIN, URINE AUTO; Value: 2+; Range: NEGATIVE; Abnormal: Above high normal; Units: mg/dL; Status: F Test: GLUCOSE, URINE (UA) AUTO; Value: NEGATIVE; Range: NEGATIVE; Units: mg/dL; Status: F Test: KETONE, URINE AUTO; Value: NEGATIVE; Range: NEGATIVE; Units: mg/dL; Status: F Test: UROBILINOGEN, URINE AUTO; Value: 2.0; Range: 0.0-2.0; Abnormal: Above high normal; Units: mg/dL; Status: F Test: BILIRUBIN, URINE AUTO; Value: NEGATIVE; Range: NEGATIVE; Status: F Test: NITRITE, URINE AUTO; Value: NEGATIVE; Range: NEGATIVE; Status: F Test: LEUKOCYTE ESTERASE, URINE AUTO; Value: 3+; Range: NEGATIVE; Abnormal: Above high normal; Status: F Test: BLOOD, URINE BLOOD; Value: 3+; Range: NEGATIVE; Abnormal: Above high normal; Status: F Test: WBC, URINE AUTO; Value: TNTC; Range: 0-3; Abnormal: Above high normal; Units: /HPF; Status: F Test: RBC, URINE AUTO; Value: TNTC; Range: 0-3; Abnormal: Above high normal; Units: /HPF; Status: F Test: BACTERIA, URINE AUTO; Value: 3+; Range: NEGATIVE; Abnormal: Above high normal; Status: F Test: SQUAMOUS EPITHELIAL CELL UR AU; Value: 4; Range: 0-6; Units: /HPF; Status: F Test: MUCUS, URINE; Value: LARGE; Range: NEGATIVE; Status: F Test: HYALINE CAST, URINE AUTO; Value: 0; Range: 0-1; Units: /LPF; Status: F Test: AMORPHOUS SEDIMENT; Value: SMALL; Range: NEGATIVE; Abnormal: Above high normal; Status: F Lab Order: Urine Culture; SPEC'M 10/11/16 09:41 Test: URINE CULTURE; Value: <EXTERNAL COMMENT eCWMed> FULL REPORT IN LAB NOTES (eCW and Medent).; Status: F Test: URINE CULTURE; Value: ORGANISM 1: ESCHERICHIA COLI; Status: F Test: URINE CULTURE; Value: ESCHERICHIA COLI; Status: F Test: URINE CULTURE; Value: COLONY COUNT CFU/ml >100,000; Status: F Test: URINE CULTURE; Value: GRAM NEG SENSI - VITEK 80; Status: F Test: URINE CULTURE; Value: Method: VIT2; Status: F Test: URINE CULTURE; Value: EXTD BRD SPCTRM BETA LACTAMASE -; Status: F Test: URINE CULTURE; Value: TRIMETHOPRIM/SULFAMETHOXAZOLE >=320 R; Status: F Test: URINE CULTURE; Value: AMPICILLIN >=32 R; Status: F Test: URINE CULTURE; Value: GENTAMICIN <=1 S; Status: F Test: URINE CULTURE; Value: NITROFURANTOIN <=16 S; Status: F Test: URINE CULTURE; Value: CEFAZOLIN <=4 S; Status: F Test: URINE CULTURE; Value: LEVOFLOXACIN <=0.12 S; Status: F Test: URINE CULTURE; Value: TOBRAMYCIN <=1 S; Status: F Test: URINE CULTURE; Value: CEFTRIAXONE <=1 S; Status: F Test: URINE CULTURE; Value: CEFTAZIDIME <=1 S; Status: F Test: URINE CULTURE; Value: AMPICILLIN/SULBACTAM 16 I; Status: F Test: URINE CULTURE; Value: PIPERACILLIN/TAZOBACTAM <=4 S; Status: F Test: URINE CULTURE; Value: AZTREONAM <=1 S; Status: F Test: URINE CULTURE; Value: ERTAPENEM <=0.5 S; Status: F Test: URINE CULTURE; Value: MEROPENEM <=0.25 S; Status: F Test: URINE CULTURE; Value: TIGECYCLINE <=0.5 S; Status: F Test: URINE CULTURE; Value: CEFEPIME <=1 S; Status: F Lab Order: GC & Chlamydia Amplification; SPEC'M 10/11/16 09:53 Test: CHLAMYDIA DNA AMPLIFICATION; Value: NEGATIVE; Range: NEGATIVE; Status: F Test: GC DNA AMPLIFICATION; Value: NEGATIVE; Range: NEGATIVE; Status: F Lab Order: Wet Prep; SPEC'M 10/11/16 09:53 Test: WET PREP; Value: WET PREP RESULT; Status: F Test: WET PREP; Value: MANY EPITHELIAL CELLS PRESENT; Status: F Test: WET PREP; Value: MANY RBC; Status: F Outcome: 10:38 Discharge ordered by Provider. sd1 10:47 Discharge Assessment: Patient awake, alert and oriented x 3. No cognitive and/or dls functional deficits noted. Patient verbalized understanding of disposition instructions. patient administered narcotics - no. The following High Risk Discharge criteria are identified: None. Discharged to home ambulatory, with family. Condition: stable. Discharge instructions given to patient, Instructed on discharge instructions, follow up and referral plans. medication usage, Demonstrated understanding of instructions, medications, Pt was receptive of discharge instructions/ teaching. Prescriptions given X 2. No special radiology studies were completed. Property sent home with patient. 10:48 Patient left the ED. dls Addendum: 10/13/2016 12:33 Narrative: urine culture reviewed,pt treated appropriately. [facility] Signatures: Caroline Perry MD MD sd1 Julieta Corona RN RN [facility] René Alexis RN RN jmk Scott, Debra, RN RN dls Nayely Matute, Reg Reg gb Cornelius Hogan, Reg Reg lg Es Braga RN RN hs1 Young Godinez, DOMINIC DRESSMAKING TEACHER jrd MTDD
--- NOTE | 2016-10-13 12:36 | EDDOCDS ---
Physician Documentation [facility] Name: Claudia Barnes Age: 31 yrs Sex: Female : 1985 Arrival Date: 10/11/2016 Time: 09:26 Bed I7 / 29 Private MD: Altagracia [facility] Disposition: 10/11/16 10:38 Discharged to Home/Self Care. Impression: Abnormal uterine and vaginal bleeding, unspecified, Urinary tract infection, site not specified. - Condition is Stable. - Discharge Instructions: Abnormal Uterine Bleeding, Uterine Bleeding, Dysfunctional, Abnormal Uterine Bleeding, Rmpj-um-Neic, Urinary Tract Infection. - Prescriptions for Cipro 500 mg Oral Tablet - take 1 tablet by ORAL route every 12 hours; 14 tablet. - Medication Reconciliation, Local Pharmacy Hours form. - Follow up: [facility] Altagracia; When: 2 - 3 days. - Problem is new. - Symptoms are unchanged. - Notes: return for severe abdominal pain, vaginal bleeding saturading more than one pad per hour, worsening symptoms or other concerns Historical: - Allergies: no known allergies; - Home Meds: 1. none - PMHx: none; - PSHx: Section x3; - Social history: Smoking status: Patient uses tobacco products, light tobacco smoker. No barriers to communication noted, The patient speaks fluent Hungarian, Speaks appropriately for age. - Family history: Not pertinent. - : The pt / caregiver states he / she is not on anticoagulants. Home medication list is obtained from the patient. - Exposure Risk Screening:: None identified. Vital Signs: 10/11 09:28 BP 117 / 73; Pulse 82; Resp 18; Temp 98.9(O); Pulse Ox 100% ; Weight 57.61 kg / 127.01 jrd lbs (R); Height 5 ft. 2 in. (157.48 cm) (R); Pain 8/10; 10:46 BP 115 / 76; Pulse 80; Resp 18; Temp 97.4; Pulse Ox 98% on R/A; Pain 2/10; dls 09:28 Body Mass Index 23.23 (57.61 kg, 157.48 cm) jrd MDM: 09:36 Urine Culture Ordered. EDMS 09:36 CBC Ordered. EDMS 09:37 HCG,Serum Qualitative Ordered. EDMS 09:37 Type & Screen Ordered. EDMS 09:37 UA Ordered. EDMS 09:44 Set up pelvic ordered. sd1 09:46 GC & Chlamydia Amplification Ordered. EDMS 09:46 Wet Prep Ordered. EDMS 10:33 CBC Reviewed. sd1 10:33 UA Reviewed. sd1 10:33 HCG,Serum Qualitative Reviewed. sd1 10:33 Wet Prep Reviewed. sd1 10:33 Financial registration complete. lg 10:44 [facility] Payment Agreement was scanned into [employer] and attached to record. lg 14:21 T-Sheet-- Draft Copy was scanned into [employer] and attached to record. gb Signatures: Dispatcher [employer] EDCaroline Small MD MD sd1 René Alexis,RN RN Antionette Weiss RN RN Nayely Ortega, Reg Reg gb Cornelius Hogan, Reg Reg lg Es Braga RN RN hs1 The chart was reviewed and I authenticate all verbal orders and agree with the evaluation and treatment provided.Attachments: 10:44 [facility] Payment Agreement lg 14:21 T-Sheet-- Draft Copy gb MTDD
--- NOTE | 2016-10-13 12:36 | EDDOCDS ---
Physician Documentation [facility] Name: Claudia Barnes Age: 31 yrs Sex: Female : 1985 Arrival Date: 10/11/2016 Time: 09:26 Bed I7 / 29 Private MD: Altagracia [facility] Disposition: 10/11/16 10:38 Discharged to Home/Self Care. Impression: Abnormal uterine and vaginal bleeding, unspecified, Urinary tract infection, site not specified. - Condition is Stable. - Discharge Instructions: Abnormal Uterine Bleeding, Uterine Bleeding, Dysfunctional, Abnormal Uterine Bleeding, Zwls-wh-Rils, Urinary Tract Infection. - Prescriptions for Cipro 500 mg Oral Tablet - take 1 tablet by ORAL route every 12 hours; 14 tablet. - Medication Reconciliation, Local Pharmacy Hours form. - Follow up: [facility] Altagracia; When: 2 - 3 days. - Problem is new. - Symptoms are unchanged. - Notes: return for severe abdominal pain, vaginal bleeding saturading more than one pad per hour, worsening symptoms or other concerns Historical: - Allergies: no known allergies; - Home Meds: 1. none - PMHx: none; - PSHx: Section x3; - Social history: Smoking status: Patient uses tobacco products, light tobacco smoker. No barriers to communication noted, The patient speaks fluent Syriac, Speaks appropriately for age. - Family history: Not pertinent. - : The pt / caregiver states he / she is not on anticoagulants. Home medication list is obtained from the patient. - Exposure Risk Screening:: None identified. Vital Signs: 10/11 09:28 BP 117 / 73; Pulse 82; Resp 18; Temp 98.9(O); Pulse Ox 100% ; Weight 57.61 kg / 127.01 jrd lbs (R); Height 5 ft. 2 in. (157.48 cm) (R); Pain 8/10; 10:46 BP 115 / 76; Pulse 80; Resp 18; Temp 97.4; Pulse Ox 98% on R/A; Pain 2/10; dls 09:28 Body Mass Index 23.23 (57.61 kg, 157.48 cm) jrd MDM: 09:36 Urine Culture Ordered. EDMS 09:36 CBC Ordered. EDMS 09:37 HCG,Serum Qualitative Ordered. EDMS 09:37 Type & Screen Ordered. EDMS 09:37 UA Ordered. EDMS 09:44 Set up pelvic ordered. sd1 09:46 GC & Chlamydia Amplification Ordered. EDMS 09:46 Wet Prep Ordered. EDMS 10:33 CBC Reviewed. sd1 10:33 UA Reviewed. sd1 10:33 HCG,Serum Qualitative Reviewed. sd1 10:33 Wet Prep Reviewed. sd1 10:33 Financial registration complete. lg 10:44 [facility] Payment Agreement was scanned into [employer] and attached to record. lg 14:21 T-Sheet-- Draft Copy was scanned into [employer] and attached to record. gb Signatures: Dispatcher [employer] EDCaroline Small MD MD sd1 René Alexis,RN RN Antionette Weiss RN RN Nayely Ortega, Reg Reg gb Cornelius Hogan, Reg Reg lg Es Braga RN RN hs1 The chart was reviewed and I authenticate all verbal orders and agree with the evaluation and treatment provided.Attachments: 10:44 [facility] Payment Agreement lg 14:21 T-Sheet-- Draft Copy gb MTDD
== END 2016-10-11 10:48 | disposition home or self-care (01) ==
LOC: M ED 09:26
DX: N93.8 Other specified abnormal uterine and vaginal bleeding (principal); F17.200 Nicotine dependence, unspecified, uncomplicated

== ENCOUNTER 2016-11-17 10:21 | Emergency (ER) | payer OTHER ==
[~2016-11-17] VITALS: Ht 157.5 cm; Wt 55.8 kg
[2016-11-17] MEDS ORDERED: ONDANSETRON 4MG/2ML VIAL (J2405) IV ONE (11:45)
[2016-11-17] MEDS ORDERED: NS 1,000 ML IV ONE (11:45)
[2016-11-17 12:20] LABS: BASO % 0.4 % (0.0-1.0); EOS % 0.9 % (0.0-3.0); LARGE UNSTAINED CELL # 0.1 K/mm3 (0.0-0.4); LARGE UNSTAINED CELL % 2.6 % (0.0-4.0); LYMPH # 1.4 K/mm3 (1.5-4.5); LYMPH % 29.7 % (24.0-44.0); MEAN CORPUSCULAR HEMOGLOBIN 30.9 pg (27.0-33.0); MEAN CORPUSCULAR HGB CONC 32.7 g/dl (32.0-36.5); MEAN CORPUSCULAR VOLUME 94.6 fl (80.0-96.0); MONO # 0.2 K/mm3 (0.0-0.8); MONO % 3.7 % (0.0-5.0); NEUTROPHILS # 2.9 K/mm3 (1.8-7.7); NEUTROPHILS % 62.7 % (36.0-66.0); PLATELET COUNT, AUTOMATED 330 k/mm3 (150-450); RED CELL DISTRIBUTION WIDTH 12.1 % (11.5-14.5); WHITE BLOOD COUNT 4.7 K/mm3 (4.0-10.0)
[2016-11-17 12:44] LABS: ALBUMIN 4.1 GM/DL (3.2-5.2); ALBUMIN/GLOBULIN RATIO 0.93 (1.00-1.93); ALKALINE PHOSPHATASE 47 U/L (45-117); ALT/SGPT 12 U/L (12-78); ANION GAP 6 MEQ/L (8-16); AST/SGOT 22 U/L (15-37); BILIRUBIN,DIRECT 0.2 MG/DL (0.0-0.2); BILIRUBIN,TOTAL 0.7 MG/DL (0.2-1.0); BLOOD UREA NITROGEN 8 MG/DL (7-18); CALCIUM LEVEL 9.5 MG/DL (8.5-10.1); CARBON DIOXIDE LEVEL 31 MEQ/L (21-32); CHLORIDE LEVEL 102 MEQ/L (98-107); CREATININE FOR GFR 0.71 MG/DL (0.55-1.02); GLOMERULAR FILTRATION RATE > 60.0 (>60); GLUCOSE, FASTING 87 MG/DL (70-105); POTASSIUM SERUM 4.2 MEQ/L (3.5-5.1); SODIUM LEVEL 139 MEQ/L (136-145); TOTAL PROTEIN 8.5 GM/DL (6.4-8.2)
[2016-11-17] MEDS ORDERED: DIFL150T PO (13:45)
[2016-11-17 14:06] VITALS: BP 102/60
== END 2016-11-17 14:09 | disposition home or self-care (01) ==
LOC: M ED 11:53
DX: B37.3 Candidiasis of vulva and vagina (principal); F17.210 Nicotine dependence, cigarettes, uncomplicated; R63.0 Anorexia; Z87.440 Personal history of urinary (tract) infections; K59.00 Constipation, unspecified
CPT/HCPCS: 36415; 80048; 80076; 81001; 81025; 83690; 85025; 87210; 87491; 87591; 96374; 99285; J2405